=== PATIENT | female | born 1995 | race Caucasian/White ===

== ENCOUNTER → 2021-07-10 | Outpatient (CLI) | payer BC ==
[~2021-07-10] VITALS: Ht 177.8 cm; Wt 127.0 kg
[~2021-07-10] MED LIST: COLACE 100MG C100 MG PO; IBUPROFEN600 MG PO; KEFLEX CAP 500500 MG PO; LORTAB 5-325 M1 EACH PO
== END ==
LOC: EROP 21:41
DX: U07.1 COVID-19 (principal); E11.9 Type 2 diabetes mellitus without complications; E66.9 Obesity, unspecified; Z23 Encounter for immunization
CPT/HCPCS: 96365